=== PATIENT | female | born 1970 | race Caucasian/White ===

== ENCOUNTER 2020-07-26 07:47 | Observation (INO) ==
[2020-07-26] MEDS ORDERED: 0.9 % Sodium Chloride 1,000 ML IVC ONE (08:18)
[2020-07-26 08:29] LABS: Basophils % 0.1 %; Bilirubin,Urine Negative (Negative); Blood,Urine Negative (Negative); Clarity,Urine Clear (Clear); Color,Urine Colorless (Yellow); Eosinophils % 0.1 %; Glucose,Urine (UA) Normal (Normal); Hematocrit 40.4 % (35.3-44.9); Hemoglobin 13.2 g/dL (11.5-15.4); Immature Granulocytes % 0.5 % (0-4); Ketones,Urine Negative (Negative); Leukocyte Esterase,Urine Negative (Negative); Lymphocytes % 11.6 %; Mean Corpuscular HGB Conc 32.7 g/dL (31.6-35.5); Mean Corpuscular Hemoglobin 29.5 pg (28.0-33.3); Mean Corpuscular Volume 90.4 fL (83.0-100.0); Mean Platelet Volume 9.8 fL (9.4-12.4); Monocytes # 1.3 K/mcL (0.0-1.3); Monocytes % 7.7 %; Neutrophils # 13.9 K/mcL (1.6-8.9); Nitrite,Urine Negative (Negative); PH,Urine 6.5 pH Units (5.0-8.0); Platelet Count 283 K/mcL (140-400); Protein,Urine Negative (Neg-Trace); Red Blood Count 4.47 M/mcL (3.82-4.97); Red Cell Distribution Width 13.1 % (11.5-14.5); Specific Gravity,Urine 1.007 (1.010-1.025); Urobilinogen,Urine Normal (Normal); White Blood Count 17.3 K/mcL (4.3-11.1)
[2020-07-26 08:49] LABS: Alanine Aminotransferase 14 Units/L (7-52); Albumin 4.4 g/dL (3.5-5.7); Albumin/Globulin Ratio 1.5 (1.1-2.2); Alkaline Phosphatase 58 Units/L (34-104); Amylase 46 Units/L (29-103); Aspartate Amino Transferase 11 Units/L (13-39); BUN/Creatinine Ratio 18 (6-26); Bilirubin,Indirect 0.6 mg/dL (0.0-1.0); Bilirubin,Total 0.6 mg/dL (0.3-1.0); Blood Urea Nitrogen 11 mg/dL (6-20); Calcium 9.6 mg/dL (8.6-10.3); Carbon Dioxide 24 mEq/L (23-29); Chloride 100 mEq/L (98-107); Globulin 2.9 g/dL (2.4-3.5); Glucose 111 mg/dL (70-105); Lipase 14 Units/L (11-82); Osmolality,Calculated 278 (280-300); Potassium 3.1 mEq/L (3.5-5.1); Sodium 134 mEq/L (136-145); Total Protein 7.3 g/dL (6.4-8.9); eGFR For African Americans > 60 (> 60); eGFR For Non-African Americans > 60 (> 60)
[2020-07-26] MEDS ORDERED: Piperacillin/Tazobactam 3.375 GM in 0.9 % Sodium Chloride Mini Bag 100 ML IVP ONE ×2 (10:12→12:00)
[2020-07-26] MEDS ORDERED: *HR* Propofol 200 MG/20 ML VIAL IVP ONE (10:34)
[2020-07-26] MEDS ORDERED: *HR* FentaNYL (PF) 100 MCG/2 ML VIAL ONE (10:34)
[2020-07-26] MEDS ORDERED: Lidocaine HCL 4 ML Topical Solution (Laryng-O-Jet Kit Sterile Pak) TP ONE (10:34)
[2020-07-26] MEDS ORDERED: Ondansetron 4 MG/2 ML VIAL ONE (10:34)
[2020-07-26] MEDS ORDERED: *HR* Rocuronium Bromide 50 MG/5 ML VIAL ONE (10:34)
[2020-07-26] MEDS ORDERED: *HR* Midazolam HCl 2 MG/2 ML VIAL ONE (10:34)
[2020-07-26] MEDS ORDERED: Lidocaine -MPF 2% 2 ML VIAL ONE (10:34)
[2020-07-26] MEDS ORDERED: *HR* Succinylcholine 200 MG/10 ML VIAL IVP ONE (10:34)
[2020-07-26] MEDS ORDERED: Acetaminophen IV 1,000 MG/100 ML BAG IVPB ONE (10:45)
[2020-07-26] MEDS ORDERED: Ketorolac 30 MG/ML VIAL IVP PRN (11:14)
[2020-07-26] MEDS ORDERED: Ondansetron 4 MG/2 ML VIAL IVP PRN (11:14)
[2020-07-26] MEDS ORDERED: *HR* HYDROmorphone PF 0.5 MG/0.5 ML SYRINGE IVP PRN (11:21)
[2020-07-26] MEDS ORDERED: *HR* FentaNYL (PF) 100 MCG/2 ML VIAL IVP PRN (11:21)
[2020-07-26] MEDS ORDERED: *HR* HYDROMORPHONE 2 MG/ML VIAL ONE (11:58)
[2020-07-26] MEDS ORDERED: Sugammadex Sodium 200 MG/2 ML VIAL IV ONE (12:06)
[2020-07-26] MEDS: 0.9 % Sodium Chloride 1,000 ML IVC SCH (13:35)
[2020-07-26] MEDS: Piperacillin/Tazobactam 3.375 GM in 0.9 % Sodium Chloride Mini Bag 100 ML IVPB SCH (19:38)
[2020-07-27] MEDS: 0.9 % Sodium Chloride 1,000 ML IVC SCH ×2 (01:18→14:02)
[2020-07-27] MEDS: *HR* OxyCODONE/APAP 5/325 TABLET PO PRN ×2 (01:18→13:48)
[2020-07-27] MEDS: Piperacillin/Tazobactam 3.375 GM in 0.9 % Sodium Chloride Mini Bag 100 ML IVPB SCH ×3 (04:51→20:06)
[2020-07-27 07:49] LABS: Basophils % 0.1 %; Hematocrit 33.4 % (35.3-44.9); Immature Granulocytes % 0.5 % (0-4); Lymphocytes # 1.5 K/mcL (0.6-4.6); Lymphocytes % 9.4 %; Mean Corpuscular HGB Conc 31.7 g/dL (31.6-35.5); Mean Corpuscular Hemoglobin 29.9 pg (28.0-33.3); Mean Corpuscular Volume 94.4 fL (83.0-100.0); Mean Platelet Volume 10.4 fL (9.4-12.4); Monocytes # 1.3 K/mcL (0.0-1.3); Monocytes % 8.5 %; Neutrophils # 12.6 K/mcL (1.6-8.9); Platelet Count 219 K/mcL (140-400); Red Blood Count 3.54 M/mcL (3.82-4.97); Red Cell Distribution Width 13.2 % (11.5-14.5); Segmented Neutrophils % 81.5 %; White Blood Count 15.5 K/mcL (4.3-11.1)
[2020-07-27 07:57] LABS: Hemoglobin 10.6 g/dL (11.5-15.4)
[2020-07-27 08:08] LABS: BUN/Creatinine Ratio 21 (6-26); Blood Urea Nitrogen 12 mg/dL (6-20); Calcium 8.3 mg/dL (8.6-10.3); Carbon Dioxide 25 mEq/L (23-29); Chloride 109 mEq/L (98-107); Glucose 112 mg/dL (70-105); Osmolality,Calculated 287 (280-300); Potassium 3.3 mEq/L (3.5-5.1); Sodium 138 mEq/L (136-145); eGFR For African Americans > 60 (> 60); eGFR For Non-African Americans > 60 (> 60)
[2020-07-28] MEDS: *HR* OxyCODONE/APAP 5/325 TABLET PO PRN (00:12)
[2020-07-28] MEDS: Piperacillin/Tazobactam 3.375 GM in 0.9 % Sodium Chloride Mini Bag 100 ML IVPB SCH (03:19)
[2020-07-28] MEDS: 0.9 % Sodium Chloride 1,000 ML IVC SCH (03:19)
[2020-07-28 06:21] VITALS: BP 111/62
== END 2020-07-28 09:11 | disposition home or self-care (01) ==
LOC: EMEROOARM 07:47 → 3BNU 07:47
PROVIDERS: ADMIT Surgery; ATTEND Surgery